=== PATIENT | female | born 1960 | race Caucasian/White ===

== ENCOUNTER 2021-03-11 13:54 | Inpatient (IN) | payer OTHER ==
[~2021-03-11] VITALS: Ht 160 cm; Wt 75.3 kg
[2021-03-16] MEDS ORDERED: HYOSCYAMINE0.125 M1 SL (11:23)
[2021-03-16] MEDS ORDERED: TRAMADOL HCL50 MG PO (11:24)
== END 2021-03-16 11:48 | disposition home or self-care (01) | DRG 331 ==
LOC: SURH 03-13 07:00 → O/R 03-13 10:01 → SURH 03-13 12:09 → SURG 03-13 15:47
PROVIDERS: ADMIT Surgery; ATTEND Surgery
PROC: 0DTN4ZZ Resection of Sigmoid Colon, Percutaneous Endoscopic Approach (ICD-10-PCS; 2021-03-13)
PROC: 0DBP4ZZ Excision of Rectum, Percutaneous Endoscopic Approach (ICD-10-PCS; principal; 2021-03-13 10:00)
DX: K57.32 Diverticulitis of large intestine without perforation or abscess without bleeding (principal); R10.32 Left lower quadrant pain